=== PATIENT | female | born 1960 | race Caucasian/White ===

== ENCOUNTER 2017-07-28 21:03 | Emergency (ER) | payer BC ==
[~2017-07-28] VITALS: Ht 157.5 cm; Wt 95.3 kg
[2017-07-28 21:08] VITALS: TEMP 37.1; Ht 157.5 cm; Wt 95.3 kg
[2017-07-28 21:50] LABS: BASO % 0.4 %; BASO ABS # 0.03 K/uL (0-0.2); EOS % 1.2 %; EOS ABS # 0.09 K/uL (0-0.5); HEMATOCRIT 36.2 % (37-47); IG# 0.03 K/uL (0.00-0.02); LYMPH % 27.4 %; MEAN CELL VOLUME 80.1 fL (80-100); MEAN CORPUSCULAR HEMOGLOBIN 26.5 pg (25-34); MEAN CORPUSCULAR HGB CONC 33.1 g/dl (32-36); MEAN PLATELET VOLUME 10.6 fL (7.4-10.4); MONO % 8.4 %; MONO ABS # 0.64 K/uL (0.11-0.59); NEUT % 62.2 %; NEUT ABS # 4.77 K/uL (1.4-6.5); PLATELET COUNT 228 K/uL (130-400); RED CELL DISTRIBUTION WIDTH CV 15.4 % (11.5-14.5); RED CELL DISTRIBUTION WIDTH SD 44.7 fL (36.4-46.3); WHITE BLOOD COUNT 7.66 K/uL (4.8-10.8)
[2017-07-28 22:06] LABS: ALBUMIN 3.8 gm/dl (3.4-5.0); ALT/SGPT 29 U/L (12-78); BLOOD UREA NITROGEN 8 mg/dl (7-18); CALCIUM 9.2 mg/dl (8.5-10.1); CARBON DIOXIDE 26 mmol/L (21-32); CREATININE 0.92 mg/dl (0.60-1.20); GLUCOSE 239 mg/dl (70-99); LIPASE 208 U/L (73-393); POTASSIUM 3.1 mmol/L (3.5-5.1); SODIUM 139 mmol/L (136-145)
--- NOTE | 2017-07-28 22:06 | DIAGNOSTIC IMAGING REPORT ---
SINGLE VIEW CHEST CLINICAL HISTORY: Atypical chest pain. FINDINGS: An AP, portable, upright chest radiograph is obtained. No prior studies are available for comparison at the time of dictation. The examination is degraded by portable technique and patient rotation. The cardiomediastinal silhouette is unremarkable. The lungs and pleural spaces are clear. No pneumothorax is seen. The skeletal structures are osteopenic. The bony thorax is grossly intact. IMPRESSION: No active disease in the chest. Electronically signed by: Kole Cunha M.D. 07/28/2017 10:05 PM Dictated Date/Time: 07/28/2017 10:04 PM
--- NOTE | 2017-07-28 22:09 | DIAGNOSTIC IMAGING REPORT ---
CT SCAN OF THE BRAIN WITHOUT IV CONTRAST CLINICAL HISTORY: Dizziness. Weakness. Hypertension. COMPARISON STUDY: No priors. TECHNIQUE: Unenhanced axial CT scan of the brain is performed from the vertex to the skull base. A dose lowering technique was utilized adhering to the principles of ALARA. CT DOSE: 687.98 mGy.cm FINDINGS: Brain parenchyma: The brain parenchyma is normal in appearance. There is no hemorrhage, mass effect, or evidence of acute territorial ischemia by CT criteria. Esparza-white matter is preserved. No extra-axial fluid collection is seen. Ventricles, sulci, cisterns: Normal in configuration. Intracranial vasculature: The visualized intracranial vasculature at the skull base is normal in appearance. Calvarium: Unremarkable. Sinuses and mastoids: The visualized paranasal sinuses are clear. The mastoid air cells are well pneumatized. Orbits: The bony orbits are grossly intact. IMPRESSION: There is no hemorrhage, mass effect, or evidence of acute territorial ischemia by CT criteria. Electronically signed by: Kole Cunha M.D. 07/28/2017 10:07 PM Dictated Date/Time: 07/28/2017 10:06 PM
[2017-07-28 22:14] VITALS: O2SAT 96
[2017-07-28 22:17] LABS: ALKALINE PHOSPHATASE 54 U/L (45-117); AST/SGOT 21 U/L (15-37); TOTAL PROTEIN 7.2 gm/dl (6.4-8.2)
[2017-07-28] MEDS ORDERED: METO25TA56 PO (22:22)
[2017-07-28] MEDS ORDERED: OMEG10007 PO (22:22)
[2017-07-28] MEDS ORDERED: HYDR12.55 PO (22:22)
[2017-07-28] MEDS ORDERED: MAGN200T3 PO (22:22)
[2017-07-28] MEDS ORDERED: LOSA100T65 PO (22:22)
[2017-07-28] MEDS ORDERED: CYAN500T PO (22:22)
[2017-07-28] MEDS ORDERED: SITA50TA9 PO (22:22)
[2017-07-28] MEDS ORDERED: POTASSIUM CHLORIDE 10 MEQ TABCR PO STA (22:26)
[2017-07-28] MEDS ORDERED: MAGNESIUM SULFATE 1GM / D5W 1 GM BAG IV STA (22:26)
[2017-07-28] MEDS ORDERED: SODIUM CHLORIDE 0.9% 1000ML 1,000 ML IV STA (22:43)
[2017-07-29] MEDS ORDERED: METOPROLOL SUCC 25MG EXT REL TAB PO STA (00:38)
[2017-07-29] MEDS ORDERED: MAGN400C2 PO (01:40)
[2017-07-29 02:02] VITALS: BP 162/107; PULSE 80; O2SAT 97
--- NOTE | 2017-07-29 04:46 | EMERGENCY ROOM VISIT NOTE ---
History First contact with patient: 21:25 Chief Complaint: CARDIAC ASSESSMENT Stated Complaint: PULSE RACING, BP HIGH Nursing Triage Summary: pt reports started with feeling " like my pulse was racing after I was cleaning for about 5 hours today" pt took BP at home it was elevated pt reports feeling a burning sensation in chest and down bilat arms . pt states I have a hx of anxiety attack and I feel like my skin is crawling History of Present Illness The patient is a 57 year old female who presents to the Emergency Room with complaints of palpitations for the past few hours who was doing strenuous housework for the past several hours. Patient states she's not normally this active. She has not exercising quite sometime. Patient also states that the past several weeks she's been lightheaded with headache and feeling dizzy. She states she has not been taking her magnesium. Blood sugars have been 130 to 140. Patient denies chest pain, dyspnea, fever, chills, cold symptoms, abdominal pain, vomiting, diarrhea, tick bites, localized weakness. She is tolerating by mouth fluids and food. She did a stress test last year and a cardiac cath that was normal per patient. This is done in [place]. Patient had a Holter monitor also at this time and was normal. Review of Systems See HPI for pertinent positives & negatives. A total of 10 systems reviewed and were otherwise negative. Past Medical/Surgical History Anxiety, diabetes, hypertension, hyperlipidemia, ovarian cystectomy, cholecystectomy, , cardiac cath, GERD Social History Smoking Status: Never Smoker Current/Historical Medications Scheduled Cyanocobalamin (Vitamin B-12), 1 TAB PO DAILY Fish Oil ([place]-3), 1 CAP PO DAILY Hydrochlorothiazide (Hydrochlorothiazide), 12.5 MG PO DAILY Losartan Potassium (Cozaar), 100 MG PO DAILY Magnesium (Magnesium), 1 TAB PO DAILY Magnesium Oxide (Magnesium Oxide), 1 CAP PO DAILY Metoprolol Tartrate (Lopressor) (Lopressor), 25 MG PO BID Sitagliptin-Metformin Hcl (Janumet), 1 TAB PO BID Physical Exam Vital Signs Date Time Temp Pulse Resp B/P (MAP) Pulse Ox O2 Delivery O2 Flow Rate FiO2 07/29/17 02:02 80 18 162/107 97 Room Air 07/29/17 01:25 67 07/29/17 00:05 86 17 95 Room Air 07/29/17 00:01 149/111 07/28/17 23:50 76 15 95 07/28/17 23:35 77 15 99 07/28/17 23:34 150/102 07/28/17 23:20 78 14 97 07/28/17 23:15 87 14 96 Room Air 07/28/17 23:01 163/114 07/28/17 23:00 103 17 07/28/17 22:59 175/109 07/28/17 22:45 107 16 07/28/17 22:14 96 Room Air 07/28/17 22:14 96 Room Air 07/28/17 21:41 104 07/28/17 21:08 37.1 118 20 169/110 100 Room Air Physical Exam VITALS: Vitals are noted on the nurse's note and reviewed by myself. Vital signs hypertensive GENERAL: Pleasant female anxious-appearing, in no acute distress, nondiaphoretic , well-developed well-nourished. SKIN: The skin was without rashes, erythema, edema, or bruising. There is no tenting of the skin. Capillary reflex less than 2 seconds. HEAD: Normocephalic atraumatic. EARS: External auditory canals clear, tympanic membranes pearly esparza without erythema or effusion bilaterally. EYES: Pupils equal round and reactive to light and accommodation. Conjunctivae without injection, sclerae without icterus. Extraocular movements intact. NOSE: Patent, turbinates without inflammation or discharge. MOUTH: Mucous membranes moist. Pharynx without erythema or exudate. Uvula midline. Airway patent. Tongue does not deviate. NECK: Supple without nuchal rigidity. No lymphadenopathy. No thyromegaly. Cervical spine is nontender. No JVD. HEART: Regular rate and rhythm without murmurs gallops or rubs. LUNGS: Clear to auscultation bilaterally without wheezes, rales or rhonchi. No dullness to percussion. No retractions or accessory muscle use. ABDOMEN: Positive bowel sounds x 4. Normal tympanic percussion. Soft, nontender, without masses or organomegaly. James sign negative. No guarding or rebound tenderness. MUSCULOSKELETAL: No muscle atrophy, erythema, or edema noted. NEURO: Patient was alert and oriented to person place and time. Normal sensation to light and sharp touch. No focal neurological deficits. Medical Decision & Procedures Laboratory Results 07/28/17 21:30 Red Blood Count 4.52, Mean Corpuscular Volume 80.1, Mean Corpuscular Hemoglobin 26.5, Mean Corpuscular Hemoglobin Concent 33.1, Mean Platelet Volume 10.6, Neutrophils (%) (Auto) 62.2, Lymphocytes (%) (Auto) 27.4, Monocytes (%) (Auto) 8.4, Eosinophils (%) (Auto) 1.2, Basophils (%) (Auto) 0.4, Neutrophils # (Auto) 4.77, Lymphocytes # (Auto) 2.10, Monocytes # (Auto) 0.64, Eosinophils # (Auto) 0.09, Basophils # (Auto) 0.03 07/28/17 21:30 Test 07/28/17 21:18 07/28/17 21:30 07/29/17 00:19 Urine Color YELLOW Urine Appearance CLEAR (CLEAR) Urine pH 6.5 (4.5-7.5) Urine Specific [place] 1.006 (1.000-1.030) Urine Protein NEG (NEG) Urine Glucose (UA) NEG (NEG) Urine Ketones NEG (NEG) Urine Occult Blood NEG (NEG) Urine Nitrite NEG (NEG) Urine Bilirubin NEG (NEG) Urine Urobilinogen NEG (NEG) Urine Leukocyte Esterase NEG (NEG) Urine WBC (Auto) 0 /hpf (0-5) Urine RBC (Auto) 0-4 /hpf (0-4) Urine Hyaline Casts (Auto) 0 /lpf (0-5) Urine Epithelial Cells (Auto) 0-5 /lpf (0-5) Urine Bacteria (Auto) NEG (NEG) White Blood Count 7.66 K/uL (4.8-10.8) Red Blood Count 4.52 M/uL (4.2-5.4) Hemoglobin 12.0 g/dL (12.0-16.0) Hematocrit 36.2 % (37-47) Mean Corpuscular Volume 80.1 fL (80-100) Mean Corpuscular Hemoglobin 26.5 pg (25-34) Mean Corpuscular Hemoglobin Concent 33.1 g/dl (32-36) Platelet Count 228 K/uL (130-400) Mean Platelet Volume 10.6 fL (7.4-10.4) Neutrophils (%) (Auto) 62.2 % Lymphocytes (%) (Auto) 27.4 % Monocytes (%) (Auto) 8.4 % Eosinophils (%) (Auto) 1.2 % Basophils (%) (Auto) 0.4 % Neutrophils # (Auto) 4.77 K/uL (1.4-6.5) Lymphocytes # (Auto) 2.10 K/uL (1.2-3.4) Monocytes # (Auto) 0.64 K/uL (0.11-0.59) Eosinophils # (Auto) 0.09 K/uL (0-0.5) Basophils # (Auto) 0.03 K/uL (0-0.2) RDW Standard Deviation 44.7 fL (36.4-46.3) RDW Coefficient of Variation 15.4 % (11.5-14.5) Immature Granulocyte % (Auto) 0.4 % Immature Granulocyte # (Auto) 0.03 K/uL (0.00-0.02) Anion Gap 13.0 mmol/L (3-11) Est Creatinine Clear Calc Drug Dose 74.4 ml/min Estimated GFR () 81.2 Estimated GFR (Non- 70.1 BUN/Creatinine Ratio 9.0 (10-20) Calcium Level 9.2 mg/dl (8.5-10.1) Magnesium Level 1.4 mg/dl (1.8-2.4) Total Bilirubin 0.3 mg/dl (0.2-1) Direct Bilirubin < 0.1 mg/dl (0-0.2) Aspartate Amino Transf (AST/SGOT) 21 U/L (15-37) Alanine Aminotransferase (ALT/SGPT) 29 U/L (12-78) Alkaline Phosphatase 54 U/L (45-117) Total Protein 7.2 gm/dl (6.4-8.2) Albumin 3.8 gm/dl (3.4-5.0) Lipase 208 U/L (73-393) Thyroid Stimulating Hormone (TSH) 1.770 uIu/ml (0.300-4.500) Troponin I < 0.015 ng/ml (0-0.045) Medications Administered Medications (Trade) Dose Ordered Sig/[place] Route Start Time Stop Time Status Last Admin Dose Admin Magnesium Sulfate (Magnesium Sulfate) 2 gm NOW STAT IV 07/28/17 22:26 07/28/17 22:29 DC 07/28/17 23:00 2 GM Potassium Chloride (Klor-Con M10) 40 meq NOW STAT PO 07/28/17 22:26 07/28/17 22:29 DC 07/28/17 22:55 40 MEQ Sodium Chloride 1,000 ml @ 999 mls/hr Q1H1M STAT IV 07/28/17 22:43 07/28/17 23:43 DC 07/28/17 22:55 999 MLS/HR Metoprolol Succinate (Toprol Xl Tab) 25 mg NOW STAT PO 07/29/17 00:38 07/29/17 00:39 DC 07/29/17 01:20 25 MG ED Course Prior records/ancillary studies reviewed. Triage Nursing notes reviewed. Additional history obtained from family. The patient's history was concerning for lightheadedness, dizziness for past several months and today with palpitations. Differential diagnosis: Etiologies such as premature contractions, electrolyte abnormality, cardiac dysrhythmia, thyroid dysfunction, pulmonary embolism, infection, gastrointestinal, as well as others were entertained. Physical examination: Benign as above. ER treatment provided: IV fluids, magnesium, potassium On reassessment the patient felt better. Diagnostic interpretation by me: Cardiac monitoring revealed occasional PVC. The electrocardiogram was normal sinus, normal intervals, no acute ST-T wave changes, occasional PVC. Impression sinus tachycardia with occasional PVCs interpreted by myself The labs revealed negative troponin 2 greater than 2 hours apart. Hyperglycemia. No DKA. Low magnesium. Hypokalemia Imaging studies: Chest x-ray with no acute consolidation, pneumothorax or free air per my interpretation [~ rep ct add3]] CT SCAN OF THE BRAIN WITHOUT IV CONTRAST CLINICAL HISTORY: Dizziness. Weakness. Hypertension. COMPARISON STUDY: No priors. TECHNIQUE: Unenhanced axial CT scan of the brain is performed from the vertex to the skull base. A dose lowering technique was utilized adhering to the principles of ALARA. CT DOSE: 687.98 mGy.cm FINDINGS: Brain parenchyma: The brain parenchyma is normal in appearance. There is no hemorrhage, mass effect, or evidence of acute territorial ischemia by CT criteria. Esparza-white matter is preserved. No extra-axial fluid collection is seen. Ventricles, sulci, cisterns: Normal in configuration. Intracranial vasculature: The visualized intracranial vasculature at the skull base is normal in appearance. Calvarium: Unremarkable. Sinuses and mastoids: The visualized paranasal sinuses are clear. The mastoid air cells are well pneumatized. Orbits: The bony orbits are grossly intact. IMPRESSION: There is no hemorrhage, mass effect, or evidence of acute territorial ischemia by CT criteria. Electronically signed by: Kole Cunha M.D. This appears to be consistent with palpitations with electrolyte abnormalities and mild hyperglycemia. Patient felt much better after being medicated as above. Patient's blood pressure improved on its own. She was still advised to see family care for this. Her electrolytes were placed. Her magnesium perception was refilled. Patient had a normal EKG. 2 negative troponins. She had no chest pain. She is advised to update her Holter monitor with the family care and to follow-up this week for further evaluation and workup for her ongoing symptoms for the past several months. She is advised return to the ER immediately for chest pain, difficulty breathing, racing heart, worsening signs or symptoms or as needed. By the evaluation outlined above emergent etiologies such as cardiac dysrhythmia, thyroid dysfunction, pulmonary embolism, infection, as well as others were deemed relatively unlikely. The pt informed about the findings as listed above. All questions were answered and pleased with the treatment. Return instructions were outlined and the patient was discharged in stable condition. Outpatient prescription management: Magnesium Referral: The patient was referred back to their primary care physician for follow-up in 2 to 3 days for a recheck of the current condition Case reviewed with my attending Medical Decision As above Medication Reconcilliation Current Medication List: was personally reviewed by me Blood Pressure Screening Patient's blood pressure: Elevated blood pressure Blood pressure disposition: Referred to PCP Impression Primary Impression: Palpitations Additional Impressions: Lightheadedness Hypomagnesemia Hypokalemia Diabetes mellitus with hyperglycemia Departure Information Dispostion Home / Self-Care Condition GOOD Prescriptions Magnesium Oxide (MAGNESIUM OXIDE) 400 Mg Cap 1 CAP PO DAILY for 30 Days, #30 CAP 5 Refills Prov: Mónica Vergara .SUSANA 07/29/17 Forms IMPORTANT VISIT INFORMATION Patient Instructions My [facility], ED Palpitations Additional Instructions Monitor your blood pressure and blood sugar. Recommend outpatient Holter monitor. Decrease caffeine, alcohol, tobacco and salt intake. Avoid stimulants near bedtime. Ibuprofen(Motrin, Advil) may be used for fever or pain. Use 600mg every six hours as needed. Take with food. Avoid using more than 2400mg in a 24 hour period. Do not use 2400mg per day for more than three consecutive days without physician direction. Prolonged inappropriate use can lead to stomach upset or ulcers. (AND/OR) Acetaminophen(Tylenol) may be used for fever or pain. Use 1000mg every six hours as needed. Avoid using more than 3000mg in a 24 hour period. Rest and drink plenty of fluids as tolerated. Continue current medications. Avoid strenuous activities and anything that worsens your symptoms. Resume normal activities once your symptoms resolve. Return to the ER immediately for worsening or persistent prolonged palpitations , abdominal pain, vomiting, fevers, chest pains, difficulty breathing, worsening of your condition, or as needed. Follow up with your primary physician in 2-3 days for a recheck of your current condition. Problem Qualifiers
== END 2017-07-29 02:07 | disposition home or self-care (01) ==
LOC: C.EDB 21:05
DX: R00.2 Palpitations (principal); R42 Dizziness and giddiness; E83.42 Hypomagnesemia; E87.6 Hypokalemia; E11.65 Type 2 diabetes mellitus with hyperglycemia; F41.9 Anxiety disorder, unspecified; I10 Essential (primary) hypertension; E78.5 Hyperlipidemia, unspecified; K21.9 Gastro-esophageal reflux disease without esophagitis; Z79.84 Long term (current) use of oral hypoglycemic drugs